=== PATIENT | female | born 1965 | race Caucasian/White ===

== ENCOUNTER 2016-10-17 19:49 | Emergency (ER) | payer MEDICARE, MEDICAID ==
[~2016-10-17] VITALS: Ht 160 cm; Wt 89.0 kg
[~2016-10-17 19:49] MED LIST: [UNRECOGNIZED DRUG - REMARK] PO
[2016-10-17] MEDS ORDERED: DEXAMETHASONE 4 MG TABLET PO ONE (21:00)
[2016-10-17] MEDS ORDERED: HYDROmorphone 1 MG/ML, 1ML IM STA (21:15)
[2016-10-17] MEDS ORDERED: HYDROmorphone 1 MG/ML, 1ML ONE (21:40)
[2016-10-17] MEDS ORDERED: DEXAMETHASONE 4 MG TABLET ONE (21:40)
[2016-10-17 22:55] VITALS: BP 144/71
== END 2016-10-17 22:57 | disposition home or self-care (01) ==
LOC: ED 21:37
DX: J02.8 Acute pharyngitis due to other specified organisms (principal); E11.9 Type 2 diabetes mellitus without complications; E78.00 Pure hypercholesterolemia, unspecified; I25.10 Atherosclerotic heart disease of native coronary artery without angina pectoris; Z86.73 Personal history of transient ischemic attack (TIA), and cerebral infarction without residual deficits; I25.2 Old myocardial infarction; I10 Essential (primary) hypertension; F17.210 Nicotine dependence, cigarettes, uncomplicated
CPT/HCPCS: 36415; 86308; 87081; 87147; 87880; 96372; 99284; J1170

== ENCOUNTER 2016-11-18 17:00 | Emergency (ER) | payer MEDICARE, MEDICAID ==
[~2016-11-18] VITALS: Ht 160 cm; Wt 87.3 kg
[2016-11-18 17:02] VITALS: BP 112/76
[2016-11-18 17:29] LABS: PATH.CAST-FLAG NOT PRESENT; SPERM-FLAG NOT PRESENT; SRC-FLAG NOT PRESENT; XTAL-FLAG NOT PRESENT; YLC-FLAG NOT PRESENT
[2016-11-18] MEDS ORDERED: PHENAZOPYRIDINE 200 MG TABLET PO ONE (17:30)
[2016-11-18] MEDS ORDERED: PHENAZOPYRIDINE 200 MG TABLET ONE (18:03)
[2016-11-18 18:32] LABS: ASPARTATE AMINO TRANSFERASE 25 U/L (15-37); BLOOD UREA NITROGEN 14 mg/dL (7-18)
== END 2016-11-18 19:14 | disposition home or self-care (01) ==
LOC: ED 19:12
DX: E11.9 Type 2 diabetes mellitus without complications (principal); I10 Essential (primary) hypertension; I25.10 Atherosclerotic heart disease of native coronary artery without angina pectoris; Z95.1 Presence of aortocoronary bypass graft
CPT/HCPCS: 36415; 80053; 81001; 83690; 85025; 99284

== ENCOUNTER 2016-11-30 14:41 | Emergency (ER) | payer MEDICARE, MEDICAID ==
[~2016-11-30] VITALS: Ht 160 cm; Wt 89.9 kg
[2016-11-30 16:37] LABS: PATH.CAST-FLAG NOT PRESENT; SPERM-FLAG NOT PRESENT; SRC-FLAG NOT PRESENT; XTAL-FLAG NOT PRESENT; YLC-FLAG NOT PRESENT
[2016-11-30 17:08] VITALS: BP 111/71
== END 2016-11-30 17:10 | disposition home or self-care (01) ==
LOC: ED 15:28
DX: N30.01 Acute cystitis with hematuria (principal); E11.9 Type 2 diabetes mellitus without complications; E78.00 Pure hypercholesterolemia, unspecified; I10 Essential (primary) hypertension; Z87.440 Personal history of urinary (tract) infections; Z90.49 Acquired absence of other specified parts of digestive tract; Z95.1 Presence of aortocoronary bypass graft
CPT/HCPCS: 81001; 87077; 87086; 87186; 99284

== ENCOUNTER 2016-12-13 08:07 | Emergency (ER) | payer MEDICARE, MEDICAID ==
[~2016-12-13] VITALS: Ht 160 cm; Wt 87.0 kg
[2016-12-13 08:08] VITALS: BP 111/69
== END 2016-12-13 09:31 | disposition home or self-care (01) ==
LOC: ED 09:16
DX: D17.24 Benign lipomatous neoplasm of skin and subcutaneous tissue of left leg (principal); E11.9 Type 2 diabetes mellitus without complications; E78.00 Pure hypercholesterolemia, unspecified; I10 Essential (primary) hypertension; Z86.73 Personal history of transient ischemic attack (TIA), and cerebral infarction without residual deficits; I25.810 Atherosclerosis of coronary artery bypass graft(s) without angina pectoris; Z90.49 Acquired absence of other specified parts of digestive tract; F17.210 Nicotine dependence, cigarettes, uncomplicated; Z09 Encounter for follow-up examination after completed treatment for conditions other than malignant neoplasm; Z95.1 Presence of aortocoronary bypass graft
CPT/HCPCS: 99284

== ENCOUNTER 2017-03-03 20:12 | Inpatient (IN) | payer MEDICARE, MEDICAID ==
[~2017-03-03] VITALS: Ht 160 cm; Wt 88.1 kg
[2017-03-03] MEDS ORDERED: LISI2.5T PO (20:40)
[2017-03-03] MEDS ORDERED: NITR50CA PO (20:40)
[2017-03-03] MEDS ORDERED: CARV3.122 PO (20:40)
[2017-03-03] MEDS ORDERED: ATOR-2 PO (20:40)
[2017-03-03] MEDS ORDERED: TRAZ100T15 PO (20:41)
[2017-03-03] MEDS ORDERED: ASPIRIN 81 MG TABLET CHEW PO ONE (21:00)
[2017-03-03] MEDS ORDERED: MORPHINE SULFATE 4 MG/ML, 1ML ONE ×2 (21:08→21:51)
[2017-03-03] MEDS ORDERED: ASPIRIN 81 MG TABLET CHEW ONE (21:08)
[2017-03-03] MEDS: MORPHINE SULFATE 4 MG/ML, 1ML IVPush PRN ×2 (21:10→21:54)
[2017-03-03 21:21] LABS: HEMATOCRIT 45.7 % (34.6-47.8); HEMOGLOBIN 15.8 g/dL (11.7-16.4)
[2017-03-03 21:32] LABS: ASPARTATE AMINO TRANSFERASE 24 U/L (15-37); BLOOD UREA NITROGEN 8 mg/dL (7-18)
[2017-03-03 21:36] LABS: IS PT STATUS REG ER OR PRE ER? NO
[2017-03-03] MEDS ORDERED: OMNIPAQUE 350 MG/ML, 100ML BOTTLE ONE (22:35)
[2017-03-03] MEDS ORDERED: SODIUM CHLORIDE 0.9% 1,000 ML IV SCH (23:26)
[2017-03-03] MEDS ORDERED: DOCUSATE 100 MG CAPSULE PO PRN (23:30)
[2017-03-03] MEDS ORDERED: ONDANSETRON 2MG/ML, 2ML IVPush PRN (23:30)
[2017-03-03] MEDS ORDERED: ACETAMINOPHEN 325 MG TABLET PO PRN (23:30)
[2017-03-03] MEDS ORDERED: POLYETHYLENE GLYCOL 17 GM PACKET PO PRN (23:30)
[2017-03-04] MEDS ORDERED: NICOTINE 14MG/24 HR PATCH.TD24 TD SCH (01:00)
[2017-03-04] MEDS ORDERED: ENOXAPARIN 40 MG/0.4 ML SQ SCH (01:00)
[2017-03-04] MEDS: morphine SULFATE 10 MG/ML, 1ML IVPush PRN ×4 (01:13→12:46)
[2017-03-04 01:34] VITALS: BP 101/58
[2017-03-04 02:11] VITALS: BP 101/58
[2017-03-04 05:49] LABS: IS PT STATUS REG ER OR PRE ER? NO
[2017-03-04] MEDS ORDERED: LISINOPRIL 5 MG TABLET PO SCH (09:00)
[2017-03-04] MEDS ORDERED: CARVEDILOL 3.125 MG TABLET PO SCH (09:00)
[2017-03-04 09:21] VITALS: BP 117/68
[2017-03-04] MEDS ORDERED: REGADENOSON 0.4 MG/5 ML SYRINGE ONE (10:27)
[2017-03-04 14:21] VITALS: BP_SYST 100; BP_SYST 98; BP_DIAS 58; BP_DIAS 62
[2017-03-04] MEDS ORDERED: ASPI-621 PO (16:14)
[2017-03-04] MEDS ORDERED: OXYC-302 PO (17:59)
[2017-03-04] MEDS ORDERED: ATORVASTATIN 80 MG TABLET PO SCH (21:00)
[2017-03-04] MEDS ORDERED: TRAZODONE 100MG TABLET PO SCH (21:00)
[2017-03-04] MEDS ORDERED: CARVEDILOL 6.25 MG TABLET PO SCH (21:00)
[2017-03-05] MEDS ORDERED: ASPIRIN 81 MG TABLET EC PO SCH (06:00)
== END 2017-03-04 18:32 | disposition home or self-care (01) | DRG 313 ==
LOC: ED 22:41 → EDIP 23:10 → SUATTDRO 23:12 → 5SO 23:58
PROVIDERS: ADMIT Family Medicine; ATTEND Family Medicine
DX: R07.89 Other chest pain (principal); I25.2 Old myocardial infarction; I11.0 Hypertensive heart disease with heart failure; I50.40 Unspecified combined systolic (congestive) and diastolic (congestive) heart failure; E87.1 Hypo-osmolality and hyponatremia; Z95.1 Presence of aortocoronary bypass graft; I25.5 Ischemic cardiomyopathy; Z88.2 Allergy status to sulfonamides; Z88.8 Allergy status to other drugs, medicaments and biological substances; E11.9 Type 2 diabetes mellitus without complications; E78.2 Mixed hyperlipidemia; F17.200 Nicotine dependence, unspecified, uncomplicated; I25.10 Atherosclerotic heart disease of native coronary artery without angina pectoris; I34.0 Nonrheumatic mitral (valve) insufficiency; Z79.82 Long term (current) use of aspirin; Z80.1 Family history of malignant neoplasm of trachea, bronchus and lung; Z86.718 Personal history of other venous thrombosis and embolism; Z86.73 Personal history of transient ischemic attack (TIA), and cerebral infarction without residual deficits; Z98.51 Tubal ligation status
CPT/HCPCS: 36415; 71010; 71275; 78452; 80053; 80061; 83605; 84484; 85025; 85379; 93005; 93017; 96374; 96376; J1650; J2785; Q9967; A9502; C9898; J2270; J7030

== ENCOUNTER 2017-05-08 20:50 | Emergency (ER) | payer MEDICARE, MEDICAID ==
[~2017-05-08] VITALS: Ht 160 cm; Wt 88.5 kg
[~2017-05-08 20:50] MED LIST changes: +ASPI-621 PO; +ATOR-2 PO; +CARV3.122 PO; +LISI2.5T PO; +NITR50CA PO; +OXYC-302 PO; +TRAZ100T15 PO
[2017-05-08 20:53] VITALS: BP 121/69
== END 2017-05-08 21:59 | disposition home or self-care (01) ==
LOC: ED 21:47
DX: J20.9 Acute bronchitis, unspecified (principal); E11.9 Type 2 diabetes mellitus without complications; E78.00 Pure hypercholesterolemia, unspecified; I25.810 Atherosclerosis of coronary artery bypass graft(s) without angina pectoris; Z86.73 Personal history of transient ischemic attack (TIA), and cerebral infarction without residual deficits; Z90.49 Acquired absence of other specified parts of digestive tract; Z95.1 Presence of aortocoronary bypass graft
CPT/HCPCS: 99283

== ENCOUNTER → 2017-05-13 | Outpatient (CLI) | payer MEDICARE, MEDICAID | END | disposition home or self-care (01) | LOC: CFH 11:34 | PROVIDERS: ATTEND Internal Medicine Cardiovascular Disease | DX: I08.3 Combined rheumatic disorders of mitral, aortic and tricuspid valves (principal); I25.5 Ischemic cardiomyopathy; I10 Essential (primary) hypertension; E78.5 Hyperlipidemia, unspecified; I25.2 Old myocardial infarction; Z95.5 Presence of coronary angioplasty implant and graft; Z86.73 Personal history of transient ischemic attack (TIA), and cerebral infarction without residual deficits | CPT/HCPCS: C8929 ==

== ENCOUNTER 2017-05-24 12:43 | Emergency (ER) | payer MEDICARE, MEDICAID ==
[~2017-05-24] VITALS: Ht 160 cm; Wt 83.8 kg
[2017-05-24 13:57] LABS: BASOPHILS # (AUTO) 0.09 x10^3/uL (0-0.1); BASOPHILS % (AUTO) 1 % (0-1); EOSINOPHILS # (AUTO) 0.08 x10^3/uL (0-0.4); EOSINOPHILS % (AUTO) 1 % (1-7); LYMPHOCYTES % (AUTO) 25 % (22-44); MD NO; MEAN CORPUSCULAR HEMOGLOBIN 30.5 pg (27.0-34.8); MEAN CORPUSCULAR HGB CONC 34.2 g/dL (32.4-35.8); MEAN CORPUSCULAR VOLUME 89.1 fL (80-100); MEAN PLATELET VOLUME 9.1 fL (7.4-10.4); MONOCYTES # (AUTO) 0.68 x10^3/uL (0.2-0.8); MONOCYTES % (AUTO) 9 % (2-9); NEUTROPHILS # (AUTO) 4.98 x10^3/uL (1.8-6.8); NEUTROPHILS % (AUTO) 64 % (42-75); PLATELET COUNT 164 x10^3/uL (130-400); RED BLOOD COUNT 5.18 x10^6/uL (3.82-5.3); RED CELL DISTRIBUTION WIDTH 12.4 % (9.6-15.2)
[2017-05-24 14:05] LABS: ALBUMIN 3.9 g/dL (3.4-5.0); ANION GAP 3 mmol/L (5-15); CALCIUM 9.1 mg/dL (8.5-10.1); CHLORIDE 106 mmol/L (98-107); CREATININE 0.96 mg/dL (0.55-1.02)
[2017-05-24 14:57] LABS: CULTURE INDICATED? YES; MICROSCOPIC INDICATED
[2017-05-24 16:01] VITALS: BP 99/58
== END 2017-05-24 16:15 | disposition home or self-care (01) ==
LOC: ED 13:54
DX: N39.0 Urinary tract infection, site not specified (principal); R30.0 Dysuria; E78.00 Pure hypercholesterolemia, unspecified; E11.9 Type 2 diabetes mellitus without complications; I10 Essential (primary) hypertension; I25.10 Atherosclerotic heart disease of native coronary artery without angina pectoris; I25.2 Old myocardial infarction; Z95.1 Presence of aortocoronary bypass graft; Z90.49 Acquired absence of other specified parts of digestive tract; Z86.73 Personal history of transient ischemic attack (TIA), and cerebral infarction without residual deficits
CPT/HCPCS: 36415; 80048; 81001; 82040; 85025; 87077; 87086; 87186; 99284

== ENCOUNTER 2017-07-13 13:13 | Emergency (ER) | payer MEDICARE, MEDICAID ==
[~2017-07-13] VITALS: Ht 160 cm; Wt 85.0 kg
[2017-07-13] MEDS ORDERED: SODIUM CHLORIDE 0.9% 1,000 ML IV ONE (16:04)
[2017-07-13 16:20] LABS: BASOPHILS # (AUTO) 0.03 x10^3/uL (0-0.1); BASOPHILS % (AUTO) 1 % (0-1); EOSINOPHILS # (AUTO) 0.15 x10^3/uL (0-0.4); EOSINOPHILS % (AUTO) 2 % (1-7); LYMPHOCYTES # (AUTO) 1.82 x10^3/uL (1-3.4); LYMPHOCYTES % (AUTO) 29 % (22-44); MD NO; MEAN CORPUSCULAR HEMOGLOBIN 30.2 pg (27.0-34.8); MEAN CORPUSCULAR HGB CONC 33.9 g/dL (32.4-35.8); MEAN CORPUSCULAR VOLUME 89.1 fL (80-100); MEAN PLATELET VOLUME 9.1 fL (7.4-10.4); MONOCYTES # (AUTO) 0.48 x10^3/uL (0.2-0.8); MONOCYTES % (AUTO) 8 % (2-9); NEUTROPHILS # (AUTO) 3.83 x10^3/uL (1.8-6.8); NEUTROPHILS % (AUTO) 61 % (42-75); PLATELET COUNT 147 x10^3/uL (130-400); RED BLOOD COUNT 5.25 x10^6/uL (3.82-5.3); RED CELL DISTRIBUTION WIDTH 12.6 % (9.6-15.2)
[2017-07-13] MEDS ORDERED: SODIUM CHLORIDE FLUSH 10ML SYR IVF ONE (16:30)
[2017-07-13] MEDS ORDERED: ONDANSETRON 2MG/ML, 2ML IVPush ONE (16:30)
[2017-07-13 16:35] LABS: TROPONIN I < 0.015 ng/mL (0.000-0.045)
[2017-07-13 16:42] LABS: ALANINE AMINOTRANSFERASE 30 U/L (12-78); ALBUMIN 4.3 g/dL (3.4-5.0); ANION GAP 6 mmol/L (5-15); CALCIUM 8.8 mg/dL (8.5-10.1); CHLORIDE 108 mmol/L (98-107); CREATININE 1.01 mg/dL (0.55-1.02)
[2017-07-13 16:44] LABS: ALKALINE PHOSPHATASE 75 U/L (45-117); BILIRUBIN,TOTAL 0.8 mg/dL (0.2-1.0); TOTAL PROTEIN 7.7 g/dL (6.4-8.2)
[2017-07-13] MEDS ORDERED: ONDANSETRON 2MG/ML, 2ML ONE (17:11)
[2017-07-13 17:50] VITALS: BP 118/56
[2017-07-13] MEDS ORDERED: OMNIPAQUE 350 MG/ML, 100ML BOTTLE ONE (18:03)
[2017-07-13] MEDS ORDERED: MAALOX/HYOSCYAMINE/LIDOCAINE 45 ML BTL PO ONE (18:30)
[2017-07-13] MEDS ORDERED: MAALOX/HYOSCYAMINE/LIDOCAINE 45 ML BTL ONE (18:51)
[2017-07-13 19:12] LABS: MICROSCOPIC AUTO
[2017-07-13 19:14] LABS: CULTURE INDICATED? YES
== END 2017-07-13 19:22 | disposition home or self-care (01) ==
LOC: ED 16:26
DX: S39.011A Strain of muscle, fascia and tendon of abdomen, initial encounter (principal); K29.00 Acute gastritis without bleeding; I10 Essential (primary) hypertension; E11.9 Type 2 diabetes mellitus without complications; E78.00 Pure hypercholesterolemia, unspecified; I25.2 Old myocardial infarction; I25.10 Atherosclerotic heart disease of native coronary artery without angina pectoris; F17.210 Nicotine dependence, cigarettes, uncomplicated; Z90.49 Acquired absence of other specified parts of digestive tract; Z95.1 Presence of aortocoronary bypass graft; Z99.81 Dependence on supplemental oxygen; X58.XXXA Exposure to other specified factors, initial encounter; Y93.89 Activity, other specified; Y92.89 Other specified places as the place of occurrence of the external cause; Y99.8 Other external cause status
CPT/HCPCS: 36415; 74177; 80053; 81001; 83690; 84484; 85025; 87077; 87086; 87186; 93005; 96361; 96374; 99285; J2405; J7030; Q9967

== ENCOUNTER 2017-11-01 20:03 | Emergency (ER) | payer MEDICARE, MEDICAID ==
[~2017-11-01] VITALS: Ht 160 cm; Wt 85.0 kg
[2017-11-01 21:56] VITALS: BP 121/85
== END 2017-11-01 21:57 | disposition home or self-care (01) ==
LOC: ED 21:44
DX: R60.0 Localized edema (principal); E11.9 Type 2 diabetes mellitus without complications; E78.00 Pure hypercholesterolemia, unspecified; I10 Essential (primary) hypertension; I25.810 Atherosclerosis of coronary artery bypass graft(s) without angina pectoris; Z86.73 Personal history of transient ischemic attack (TIA), and cerebral infarction without residual deficits; Z95.1 Presence of aortocoronary bypass graft; I25.2 Old myocardial infarction; Z90.49 Acquired absence of other specified parts of digestive tract
CPT/HCPCS: 99284

== ENCOUNTER 2018-01-22 23:55 | Emergency (ER) | payer MEDICARE, MEDICAID ==
[~2018-01-22] VITALS: Ht 160 cm; Wt 86.3 kg
[~2018-01-22 23:55] MED LIST changes: +TRAZ-137 PO; -TRAZ100T15 PO
[2018-01-23 00:37] VITALS: BP 129/74
== END 2018-01-23 00:38 | disposition home or self-care (01) ==
LOC: ED 01-23 00:30
DX: J18.8 Other pneumonia, unspecified organism (principal); I10 Essential (primary) hypertension; E11.9 Type 2 diabetes mellitus without complications; E78.00 Pure hypercholesterolemia, unspecified; I25.10 Atherosclerotic heart disease of native coronary artery without angina pectoris; I25.2 Old myocardial infarction; Z86.73 Personal history of transient ischemic attack (TIA), and cerebral infarction without residual deficits; Z90.49 Acquired absence of other specified parts of digestive tract; Z88.2 Allergy status to sulfonamides; F17.200 Nicotine dependence, unspecified, uncomplicated; Z95.1 Presence of aortocoronary bypass graft
CPT/HCPCS: 93005; 99283

== ENCOUNTER → 2018-03-03 | Outpatient (CLI) | payer MEDICARE, MEDICAID ==
[~2018-03-03] MED LIST changes: +REGADENOSON 0.4 MG/5 ML SYRINGE ONE
== END | disposition home or self-care (01) ==
LOC: CFH 07:53
PROVIDERS: ATTEND Internal Medicine Cardiovascular Disease
DX: I08.1 Rheumatic disorders of both mitral and tricuspid valves (principal); I21.29 ST elevation (STEMI) myocardial infarction involving other sites; I10 Essential (primary) hypertension; I25.10 Atherosclerotic heart disease of native coronary artery without angina pectoris; E78.5 Hyperlipidemia, unspecified; F17.210 Nicotine dependence, cigarettes, uncomplicated
CPT/HCPCS: 78452; 93017; A9502; C8929; J2785; Q9957

== ENCOUNTER 2018-07-31 07:45 | Emergency (ER) | payer MEDICARE, MEDICAID ==
[~2018-07-31] VITALS: Ht 160 cm; Wt 89.8 kg
[~2018-07-31 07:45] MED LIST changes: -ASPI-621 PO; +ASPI81TA45 PO; -REGADENOSON 0.4 MG/5 ML SYRINGE ONE
--- NOTE | 2018-07-31 08:15 | NUR ---
OXYGEN APPLIED AT 2LPM FOR SPO2=89% ROOM AIR. PATIENT TOOK A OXYCODONE 10MG TAB AT HOME AT 0610 THIS AM AND IS DOZING OFF. PATIENT WEARS O2 VIA CONCENTRATOR WHEN SLEEPING AT HOME.
[2018-07-31] MEDS ORDERED: IBUPROFEN 600 MG TABLET PO ONE (08:30)
[2018-07-31] MEDS ORDERED: IBUPROFEN 600 MG TABLET ONE (08:36)
--- NOTE | 2018-07-31 08:39 | NUR ---
PT MEDICATED WITH IBUPROFEN AND IS OFF TO XRAY AT THIS TIME.
[2018-07-31 09:07] LABS: RAPID INFLUENZA A Negative (Negative); RAPID INFLUENZA B Negative (Negative)
[2018-07-31] MEDS ORDERED: DULO60CA7 PO (09:18)
[2018-07-31] MEDS ORDERED: LISI5TAB7 PO (09:19)
[2018-07-31] MEDS ORDERED: NITR50CA PO (09:19)
[2018-07-31] MEDS ORDERED: OXYB15TA PO (09:19)
[2018-07-31] MEDS ORDERED: RISP1TAB3 PO (09:20)
[2018-07-31 09:59] VITALS: BP 16/78
== END 2018-07-31 10:02 | disposition home or self-care (01) ==
LOC: ED 08:56
DX: J06.9 Acute upper respiratory infection, unspecified (principal); I10 Essential (primary) hypertension; I25.10 Atherosclerotic heart disease of native coronary artery without angina pectoris; E11.9 Type 2 diabetes mellitus without complications; E78.00 Pure hypercholesterolemia, unspecified; F17.200 Nicotine dependence, unspecified, uncomplicated
CPT/HCPCS: 71046; 87400; 93005; 99284